=== PATIENT | male | born 1975 | race Caucasian/White ===

== ENCOUNTER 2017-10-22 10:10 | Day surgery (SDC) | payer BC ==
--- NOTE | 2017-10-22 10:25 | ER Document Report ---
ED Medical Screen (RME) - General Chief Complaint: Abdominal Pain Stated Complaint: ABDOMINAL PAIN Notes: 41-year-old male with recurrent right inguinal hernia that worsened last night after lifting weights. Called his surgeon and was told to come to the ER. He has an appointment with his surgeon tomorrow to discuss repair. Already has left inguinal hernia repair. No vomiting or constipation. PE: NAD. Normal bowel sounds. I have greeted and performed a rapid initial assessment of this patient. A comprehensive ED assessment and evaluation of the patient, analysis of test results and completion of the medical decision making process will be conducted by additional ED providers. TRAVEL OUTSIDE OF THE [place] IN LAST 30 DAYS: No - Related Data Allergies/Adverse Reactions: No Known Allergies Allergy (Unverified 10/22/17 10:14) Physical Exam - Vital signs Vitals: Temp Pulse Resp BP Pulse Ox 98.2 F 75 16 132/85 H 97 10/22/17 10:19 10/22/17 10:19 10/22/17 10:19 10/22/17 10:19 10/22/17 10:19 Course - Vital Signs Vital signs: Temp Pulse Resp BP Pulse Ox 98.2 F 75 16 132/85 H 97 10/22/17 10:19 10/22/17 10:19 10/22/17 10:19 10/22/17 10:19 10/22/17 10:19
[2017-10-22] MEDS ORDERED: HYDROCODONE/ACETAMINOPHEN 5-325 MG TABLET PO ONE (10:51)
--- NOTE | 2017-10-22 11:18 | RADIOLOGY REPORT (SQ) ---
EXAM DESCRIPTION: ACUTE ABDOMEN SERIES COMPLETED DATE/TIME: 10/22/2017 11:07 am REASON FOR STUDY: Right inguinal hernia COMPARISON: None. NUMBER OF VIEWS: Three views. TECHNIQUE: Frontal chest, supine abdomen and upright abdomen radiographic images acquired. LIMITATIONS: None. FINDINGS: CHEST: Lungs clear of infiltrates. Cardiac silhouette size, brent unremarkable. FREE AIR: None. No abnormal gas collections. BOWEL GAS PATTERN: Nonobstructive pattern. No dilated loops or air fluid levels. Moderate stool in t he ascending and transverse colon. CALCIFICATIONS: No suspicious calcifications. HARDWARE: None in the abdomen. SOFT TISSUES: No gross mass or suggestion of organomegaly. BONES: No acute fracture. No worrisome bone lesions. OTHER: No air bubbles over the right or left inguinal regions worrisome for bowel in inguinal hernia IMPRESSION: Moderate constipation TECHNICAL DOCUMENTATION: JOB ID: [id number] [employer]- All Rights Reserved Reading location - IP/workstation name: [email or web address]
--- NOTE | 2017-10-22 11:42 | ER Document Report ---
ED General - General Chief Complaint: Abdominal Pain Stated Complaint: ABDOMINAL PAIN Time Seen by Provider: 10/22/17 10:27 Mode of Arrival: Ambulatory Information source: Patient Notes: 41-year-old male history of left-sided inguinal hernia repair when he was 18 presents with complaints of right lower quadrant abdominal pain. Patient notes he felt a pop sensation yesterday when he was lifting heavy object. Patient notes he went to his primary care physician who set him up for surgical list tomorrow but that he had low-grade fevers has not had bowel movement since yesterday and was having pain TRAVEL OUTSIDE OF THE [place] IN LAST 30 DAYS: No - HPI Onset: Yesterday Onset/Duration: Sudden Quality of pain: Sharp Severity: Mild Pain Level: 1 Associated symptoms: Other Exacerbated by: Denies Relieved by: Denies Similar symptoms previously: Yes Recently seen / treated by doctor: Yes - Related Data Allergies/Adverse Reactions: No Known Allergies Allergy (Unverified 10/22/17 10:14) Past Medical History - Social History Smoking Status: Former Smoker Cigarette use (# per day): No Chew tobacco use (# tins/day): No Smoking Education Provided: No Frequency of alcohol use: None Drug Abuse: None Family History: Reviewed & Not Pertinent Patient has suicidal ideation: No Patient has homicidal ideation: No Neurological Medical History: Reports: Hx Migraine Renal/ Medical History: Denies: Hx Peritoneal Dialysis Psychiatric Medical History: Comment Only: Hx Depression - anxiety Past Surgical History: Reports: Hx Orthopedic Surgery - left arm, left leg Review of Systems - Review of Systems Notes: REVIEW OF SYSTEMS: CONSTITUTIONAL : Denies fever, chills, or sweats. Denies recent illness. EENT: Denies eye, ear, throat, or mouth pain or symptoms. Denies nasal or sinus congestion or discharge. Denies throat, tongue, or mouth swelling or difficulty swallowing. CARDIOVASCULAR: Denies chest pain. Denies palpitations or racing or irregular heart beat. Denies ankle edema. RESPIRATORY: Denies cough, cold, or chest congestion. Denies shortness of breath, difficulty breathing, or wheezing. GASTROINTESTINAL: Admits to right lower quadrant abdominal pain GENITOURINARY: Denies difficulty urinating, painful urination, burning, frequency, blood in urine, or discharge. MUSCULOSKELETAL: Denies back or neck pain or stiffness. Denies joint pain or swelling. SKIN: Denies rash, lesions or sores. HEMATOLOGIC : Denies easy bruising or bleeding. LYMPHATIC: Denies swollen, enlarged glands. NEUROLOGICAL: Denies confusion or altered mental status. Denies passing out or loss of consciousness. Denies dizziness or lightheadedness. Denies headache. Denies weakness or paralysis or loss of use of either side. Denies problems with gait or speech. Denies sensory loss, numbness, or tingling. Denies seizures. PSYCHIATRIC: Denies anxiety or stress. Denies depression, suicidal ideation, or homicidal ideation. ALL OTHER SYSTEMS REVIEWED AND NEGATIVE. Dictation was performed using [employer] voice recognition software PHYSICAL EXAMINATION: GENERAL: Well-appearing, well-nourished and in no acute distress. HEAD: Atraumatic, normocephalic. EYES: Pupils equal round and reactive to light, extraocular movements intact, sclera anicteric, conjunctiva are normal. ENT: Nares patent, oropharynx clear without exudates. Moist mucous membranes. NECK: Normal range of motion, supple without lymphadenopathy LUNGS: Breath sounds clear to auscultation bilaterally and equal. No wheezes rales or rhonchi. HEART: Regular rate and rhythm without murmurs ABDOMEN: Soft, minimally tender in the right lower quadrant no obvious hernias noted Musculoskeletal: Normal range of motion, no pitting or edema. No cyanosis. NEUROLOGICAL: Cranial nerves grossly intact. Normal speech, normal gait. Normal sensory, motor exams PSYCH: Normal mood, normal affect. SKIN: Warm, Dry, normal turgor, no rashes or lesions noted. Physical Exam - Vital signs Vitals: Temp Pulse Resp BP Pulse Ox 98.2 F 75 16 132/85 H 97 10/22/17 10:19 10/22/17 10:19 10/22/17 10:19 10/22/17 10:19 10/22/17 10:19 Course - Re-evaluation Re-evalutation: Patient notes that this feels like his previous hernia, as a result and x-ray was performed, 10/22/17 11:42 Dr. Hernandez will evaluate the patient emergency department acute abdominal series just notes constipation 10/22/17 16:11 Dr. Hernandez has graciously accepted the patient to be taken to the OR for hernia repair - Vital Signs Vital signs: Temp Pulse Resp BP Pulse Ox 98.6 F 77 16 112/73 96 10/22/17 15:50 10/22/17 15:50 10/22/17 15:50 10/22/17 15:50 10/22/17 15:50 - Laboratory Result Diagrams: 10/22/17 12:17 10/22/17 12:17 Laboratory results interpreted by me: 10/22/17 12:17 Seg Neutrophils % 82.2 H Lymphocytes % 11.2 L - Diagnostic Test Radiology reviewed: Image reviewed - xray KUB note constipation, Reports reviewed Discharge - Discharge Clinical Impression: Hernia, RLQ abdominal pain Condition: Stable Disposition: ADMITTED OBSERVATION Admitting Provider: Surgicalist Unit Admitted: Surgical Floor
--- NOTE | 2017-10-22 12:12 | PDOC H&P ---
History of Present Illness Admission Date/PCP: 10/22/17 Patient complains of: right groin pain History of Present Illness: MARTY COX is a 41 year old male with a 12 hx of right groin pain after lifting a weight last evening. He had a previous left inguinal herniorraphy with mesh a few years ago. Past Medical History Neurological Medical History: Reports: Migraine Psychiatric Medical History: Comment Only: Depression - anxiety Past Surgical History Past Surgical History: Reports: Herniorrhaphy - left inguinal with mesh, Orthopedic Surgery - left arm, left leg Social History Smoking Status: Former Smoker Family History Parental Family History Reviewed: No Children Family History Reviewed: No Sibling(s) Family History Reviewed.: No Medication/Allergy Home Medications: Alprazolam [Xanax 0.5 mg Tablet] 1 tab PO TID PRN 10/22/17 Hydrocodone/Acetaminophen [Hydrocodon-Acetaminophn 10-325] 1 each PO Q6 PRN Sertraline HCl [Sertraline HCl] 1 tab PO DAILY 10/22/17 Sumatriptan Succinate [Sumatriptan Succinate] 1 tab PO DAILY PRN 10/22/17 Allergies/Adverse Reactions: No Known Allergies Allergy (Unverified 10/22/17 10:14) Physical Exam Vital Signs: Temp Pulse Resp BP Pulse Ox 98.2 F 75 16 132/85 H 97 10/22/17 10:19 10/22/17 10:19 10/22/17 10:19 10/22/17 10:19 10/22/17 10:19 Intake & Output 10/21/17 10/22/17 10/23/17 06:59 06:59 06:59 Weight 88.2 kg General appearance: PRESENT: no acute distress Head exam: PRESENT: atraumatic Mouth exam: PRESENT: moist Neck exam: PRESENT: full ROM Respiratory exam: PRESENT: clear to auscultation alvarado Cardiovascular exam: PRESENT: RRR GI/Abdominal exam: PRESENT: normal bowel sounds, soft, tenderness - right groin with bulg and tenderness on coughing Rectal exam: PRESENT: deferred Extremities exam: PRESENT: full ROM Musculoskeletal exam: PRESENT: full ROM Results Impressions: Acute Abdomen Series 10/22/17 10:51 IMPRESSION: Moderate constipation Assessment & Plan - Diagnosis (1) Inguinal hernia Qualifiers: Obstruction and gangrene presence: without obstruction or gangrene Laterality: unilateral Recurrence: non-recurrent Qualified Code(s): K40.90 - Unilateral inguinal hernia, without obstruction or gangrene, not specified as recurrent Is this a current diagnosis for this admission?: Yes - Plan Summary Plan Summary: A/ Right groin bulge with pain after lifting last evening PE significant for right inguinal hernia, most likely indirect type P/ Right inguinal herniorraphy with mesh as outpatient surgery today Procedure, risks, benefits, complications, d/w patient, his questions were answered and he decided to proceed NPO IVF Ancef 2 gr preop
[2017-10-22] MEDS ORDERED: NORMAL SALINE 1000 ML 1,000 ML IV PRN (12:13)
[2017-10-22] MEDS ORDERED: CEFAZOLIN SODIUM 2 GM in DEXTROSE 5%-WATER 100 ML IV SCH (12:15)
[2017-10-22 12:34] LABS: ABSOLUTE LYMPHOCYTES (AUTO) 1.1 10^3/uL (0.5-4.7); ABSOLUTE MONOCYTES (AUTO) 0.6 10^3/uL (0.1-1.4); ABSOLUTE NEUT (AUTO) 7.9 10^3/uL (1.7-8.2); BASOPHILS % (AUTO) 0.2 % (0-2); EOSINOPHILS % (AUTO) 0.1 % (0-6); HEMATOCRIT 46.7 % (37.9-51.0); HEMOGLOBIN 15.9 g/dL (13.5-17.0); LYMPHOCYTES % (AUTO) 11.2 % (13-45); MEAN CORPUSCULAR HEMOGLOBIN 31.5 pg (27.0-33.4); MEAN CORPUSCULAR HGB CONC 34.1 g/dL (32.0-36.0); MEAN CORPUSCULAR VOLUME 92 fl (80-97); MONOCYTES % (AUTO) 6.3 % (3-13); PLATELET COUNT 197 10^3/uL (150-450); RED BLOOD COUNT 5.06 10^6/uL (4.35-5.55); RED CELL DISTRIBUTION WIDTH 12.7 % (11.5-14.0); SEGMENTED NEUTROPHILS % (AUTO) 82.2 % (42-78); TOTAL CELLS COUNTED % (AUTO) 100 %; WHITE BLOOD COUNT 9.6 10^3/uL (4.0-10.5)
[2017-10-22] MEDS ORDERED: BUPIVACAINE HCL 0.5%-EPI 1:200000 INJ/PF 30 ML VIAL ONE (12:35)
[2017-10-22] MEDS ORDERED: KETOROLAC TROMETHAMINE 60 MG/2 ML SDV ONE (12:47)
[2017-10-22] MEDS ORDERED: ONDANSETRON HCL INJ/PF 4 MG/2 ML SDV ONE (12:47)
[2017-10-22] MEDS ORDERED: METOCLOPRAMIDE HCL INJ/PF 10 MG/2 ML SDV ONE (12:47)
[2017-10-22] MEDS ORDERED: SUCCINYLCHOLINE CHLORIDE INJ 200 MG/10 ML VIAL ONE (12:47)
[2017-10-22] MEDS ORDERED: DEXAMETHASONE SOD PHOSPHATE INJ 4 MG/1 ML VIAL ONE (12:47)
[2017-10-22 12:50] LABS: ANION GAP 14 (5-19); BLOOD UREA NITROGEN 13 mg/dL (7-20); CALCIUM 10.1 mg/dL (8.4-10.2); CARBON DIOXIDE 30 mmol/L (22-30); CHLORIDE 101 mmol/L (98-107); GLUCOSE 96 mg/dL (75-110); POTASSIUM 4.1 mmol/L (3.6-5.0); SODIUM 144.6 mmol/L (137-145)
[2017-10-22] MEDS ORDERED: CEFAZOLIN INJ 1 GM VIAL ONE (12:53)
[2017-10-22] MEDS ORDERED: SCOPOLAMINE HYDROBROMIDE 1.5 MG PATCH.TD72 ONE (12:54)
[2017-10-22] MEDS ORDERED: PROMETHAZINE HCL INJ 25 MG/1 ML VIAL IV PRN ×2 (13:28)
[2017-10-22] MEDS ORDERED: MEPERIDINE HCL/PF INJ 25 MG/1 ML DISP.SYRIN IV PRN (13:28)
[2017-10-22] MEDS ORDERED: DIPHENHYDRAMINE HCL 50 MG/ML VIAL IV PRN (13:28)
[2017-10-22] MEDS ORDERED: ONDANSETRON HCL INJ/PF 4 MG/2 ML SDV IV PRN (13:28)
[2017-10-22] MEDS ORDERED: FENTANYL CITRATE INJ/PF 100 MCG/2 ML AMPUL IV PRN ×3 (13:28)
--- NOTE | 2017-10-22 14:21 | Operative Report ---
Nonrecallable Operative Report DATE OF SURGERY: 10/22/17 PREOPERATIVE DIAGNOSIS: right inguinal hernia POSTOPERATIVE DIAGNOSIS: same, direct type OPERATION: right direct inguinal herniorraphy with plug and patch mesh SURGEON: SANDIP DUVALL ANESTHESIA: GA - plus 20 mL 0.5% lidocaine with epinephrine TISSUE REMOVED OR ALTERED: none COMPLICATIONS: none ESTIMATED BLOOD LOSS: < 5 mL INTRAOPERATIVE FINDINGS: small direct inguinal defect (floor defect) PROCEDURE: see dictation
[2017-10-22] MEDS ORDERED: HYDROCODONE/ACETAMINOPHEN 5-325 MG TABLET ONE (15:20)
--- NOTE | 2017-10-22 15:20 | OPERATIVE REPORT E ---
Operative Report NAME: MARTY COX : 1975 AGE: 41Y DATE OF SURGERY: 10/22/2017 ROOM: ED14 PREOPERATIVE DIAGNOSIS: Right inguinal hernia. POSTOPERATIVE DIAGNOSIS: Right direct inguinal hernia. PROCEDURE: Right direct inguinal hernia repair with mesh and plug. SURGEON: SANDIP DUVALL M.D. GROUNDSMAN: None. BLEEDING: Minimal, less than 5 mL. COMPLICATIONS: None. ANESTHESIA: General plus 20 mL of 0.5% lidocaine with epinephrine. FLUIDS: 550 mL of crystalloid. URINE OUTPUT: Moderate. DRAINS: None. INDICATION AND FINDINGS: This is a healthy 41-year-old male who presented to the emergency room with a complaint of right groin pain and bulge following lifting heavy weights yesterday evening. He felt a popping sensation. On physical exam, he has an obvious bulge in the right groin with pain. The decision was made to take the patient to surgery today to undergo repair of the right inguinal hernia. Procedure risks, benefits, and complications were explained to the patient. He understands all the above and decided to proceed. PROCEDURE: The procedure was done in the operating room. The patient was placed in the supine position. General anesthesia was induced by endotracheal intubation. The right groin and inguinal area were prepped and draped in the usual fashion. The area just below the ilioinguinal ligament was infiltrated with lidocaine. After this, a curvilinear incision was made parallel to the ilioinguinal ligament about 2 fingerbreadths below it. The subcutaneous tissue and Estevan's fascia were divided with Bovie. The length of the incision was approximately 2 inches. The external oblique fascia was identified and divided. The cord was then identified and gently dissected, elevated, and pulled with a 0.25 inch Jaspreet drain. The cord was examined and found to be free from defect and no sacs were identified. However, the floor was examined and a weakness was identified in the middle of the floor. This was opened with the Bovie and finger was inserted to open the defect and enter the preperitoneal space. After this, a patch made of polyethylene mesh was inserted into the defect and secured to the edges with a [id number] 0 Prolene suture. A large piece of Polypropylene mesh was divided to size and placed on the floor. The cord was then placed on top of it. The tails of the mesh were positioned to surround the cord at the inguinal ring, which was reconstructed by overlapping the tails and securing them to the ring with a [id number] 0 Prolene suture. The distal end of the mesh was secured to the suprapubic area with a simple 0 Prolene suture. The inguinal nerve was identified, spared, and replaced together with the cord on top of the mesh. The external oblique fascia was closed with running 0 Vicryl suture. The area was irrigated with normal saline. The Estevan's fascia was closed with running 2-0 Vicryl suture and the skin approximated with 4-0 running Monocryl suture followed by Dermabond application. The patient tolerated the procedure well, extubated, and transferred to the recovery room in satisfactory condition. DICTATING PHYSICIAN: SANDIP DUVALL M.D. [id number] PHY#: [id number] ID: [id number] JOB#: [id number] ACCT: [id number] cc:SANDIP DUVALL M.D. > MTDD
[2017-10-22 16:15] VITALS: BP 106/77
[2017-10-22] MEDS ORDERED: CEFAZOLIN SODIUM 2 GM in NORMAL SALINE 100 ML IV SCH ×2 (18:00→22:00)
--- NOTE | 2017-11-22 11:24 | DISCHARGE SUMMARY E ---
Discharge Summary NAME: MARTY COX : 1975 AGE: 41Y ADMITTED: 10/22/2017 DISCHARGED: 10/22/2017 FINAL DIAGNOSIS: Right inguinal hernia, recurrent. PROCEDURE: On 10/22/2017, the patient underwent a right inguinal herniorrhaphy with mesh and plug. COMPLICATIONS: None. HOSPITAL COURSE: This is a 41-year-old male who presented to the emergency room with a 12-hour history of right groin pain with bulge, which was obviously an inguinal hernia. The patient was taken to surgery the same day to undergo an open left inguinal hernia repair with mesh. The procedure was uncomplicated. The patient was then discharged to home on the same day after a routine postop recovery. DISCHARGE ORDERS: The patient was discharged home on 10/22/2017 and was given followup appointment and instructed to return to the office in about 1 week. He was instructed to follow a regular diet, shower only, no bath, and no heavy lifting more than 10 pounds for about 6 weeks. He was given Tylenol and Aleve as needed for pain, instructed to remain active. DICTATING PHYSICIAN: SANDIP DUVALL M.D. [id number] PHY#: [id number] ID: [id number] JOB#: [id number] ACCT: [id number] cc:SANDIP DUVALL M.D. > MTDD
== END 2017-10-22 16:15 | disposition home or self-care (01) ==
LOC: ER 10:10 → EH 12:21 → UNDOADMOB 12:21 → ASU 2 14:36
PROVIDERS: ATTEND Surgery
PROC: 0YU50JZ Supplement Right Inguinal Region with Synthetic Substitute, Open Approach (ICD-10-PCS; principal; 2017-10-22 13:00)
DX: K40.90 Unilateral inguinal hernia, without obstruction or gangrene, not specified as recurrent (principal); G43.909 Migraine, unspecified, not intractable, without status migrainosus; F41.9 Anxiety disorder, unspecified; F32.9 Major depressive disorder, single episode, unspecified; Z87.891 Personal history of nicotine dependence; Z79.899 Other long term (current) drug therapy
CPT/HCPCS: 99285; 36415; 85025; 80048; 74022; 49505; C1781; J2250; J3490; J0690; J1100; J1885; J3010; J2765; J0330; J2405; J2704; J0131; 830